=== PATIENT | male | born 1980 | race African-American/Black ===

== ENCOUNTER 2018-01-15 03:04 | Emergency (ER) | payer OTHER ==
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
[2018-01-15 03:19] VITALS: BP 114/75; PULSE 83; TEMP 98.2; BMI 36.9
== END 2018-01-15 03:20 | disposition home or self-care (01) ==
LOC: JER 03:04
DX: Z77.21 Contact with and (suspected) exposure to potentially hazardous body fluids (principal); Y35.811A Legal intervention involving manhandling, law enforcement official injured, initial encounter; Y93.89 Activity, other specified; Y92.89 Other specified places as the place of occurrence of the external cause; Y99.0 Civilian activity done for income or pay
CPT/HCPCS: 99282-25